=== PATIENT | female | born 1995 | race Caucasian/White ===

== ENCOUNTER 2017-03-19 18:21 | Emergency (ER) | payer SELFPAY ==
[~2017-03-19] VITALS: Ht 165.1 cm; Wt 75.0 kg
[~2017-03-19 18:21] MED LIST: IBUP-1546 PO
[2017-03-19 20:16] LABS: APPEARANCE,URINE CLOUDY (CLEAR); GLUCOSE, URINE (UA) 500 mg/dL (NEGATIVE); KETONES,URINE NEGATIVE (NEGATIVE); LEUKOCYTE ESTERASE ,URINE MODERATE (NEGATIVE); OCCULT BLOOD,URINE LARGE (NEGATIVE); PH,URINE 5.5 (5.0-8.0); PROTEIN,URINE POS 1+ (NEGATIVE)
[2017-03-19 20:53] LABS: ADD UA MICROSCOPIC YES
[2017-03-19 20:54] LABS: URIC ACID CRYSTALS,URINE Moderate /LPF (None Seen)
[2017-03-19 20:55] LABS: RBC,URINE 51-100 /HPF (0-2); SQUAMOUS EPITHELIAL CELL,UR Few /LPF (None Seen)
[2017-03-19] MEDS ORDERED: CefTRIAXone SODIUM 1 GM/VIAL IM ONE (21:15)
[2017-03-19] MEDS ORDERED: LIDOCAINE HCL/PF 1% 2 ML VIAL IM ONE (21:15)
[2017-03-19] MEDS ORDERED: IBUPROFEN 600 MG TABLET PO ONE (21:30)
[2017-03-19 22:01] VITALS: BP 116/72
== END 2017-03-19 22:04 | disposition home or self-care (01) ==
LOC: EMS 18:24
DX: N12 Tubulo-interstitial nephritis, not specified as acute or chronic (principal); N39.0 Urinary tract infection, site not specified
CPT/HCPCS: 81001; 81025; 87077; 87086; 87186; 96372; 99284; J0696; J3490